=== PATIENT | male | born 1975 | race Caucasian/White ===

== ENCOUNTER 2018-12-26 19:07 | Emergency (ER) | payer MEDICAID ==
[~2018-12-26] VITALS: Ht 177.8 cm; Wt 79.3 kg
[~2018-12-26 19:07] MED LIST: GABA-532 PO; LAMO25TA62 PO; LURA80TA3 PO; NALT50TA10 PO; POTA99TA10 PO; PRAZ2CAP2 PO; QUET-1 PO
[2018-12-26 19:08] VITALS: BP 125/80
--- NOTE | 2018-12-26 19:56 | NUR ---
Pt reports recent change in psychotropic medictions with the adtion of seroquel and cynbalta. Pt already prescribed suboxone and gabapentin for chronic pain and titration down from opiates.
[2018-12-26] MEDS ORDERED: LORazepam 1 MG tablet PO ONE (21:00)
== END 2018-12-26 21:11 | disposition home or self-care (01) ==
LOC: ER 19:08
DX: F41.0 Panic disorder [episodic paroxysmal anxiety] (principal); G89.29 Other chronic pain; M54.6 Pain in thoracic spine; R19.7 Diarrhea, unspecified; R61 Generalized hyperhidrosis; J44.9 Chronic obstructive pulmonary disease, unspecified; F17.200 Nicotine dependence, unspecified, uncomplicated; Z88.8 Allergy status to other drugs, medicaments and biological substances; Z79.899 Other long term (current) drug therapy
CPT/HCPCS: 99284

== ENCOUNTER 2020-11-16 15:34 | Emergency (ER) | payer MEDICAID ==
[~2020-11-16] VITALS: Ht 177.8 cm; Wt 82.5 kg
[2020-11-16 15:57] VITALS: BP 169/91
[2020-11-16] MEDS ORDERED: HYDROcodone/acetaminophen 5mg/325mg tablet PO ONE (16:30)
== END 2020-11-16 16:49 | disposition home or self-care (01) ==
LOC: ER 15:35
DX: K08.89 Other specified disorders of teeth and supporting structures (principal); G89.29 Other chronic pain; F41.9 Anxiety disorder, unspecified; Z72.89 Other problems related to lifestyle; Z88.8 Allergy status to other drugs, medicaments and biological substances; Z79.899 Other long term (current) drug therapy
CPT/HCPCS: 99283

== ENCOUNTER 2022-07-19 19:44 | Emergency (ER) | payer MEDICAID ==
[~2022-07-19] VITALS: Ht 175.3 cm; Wt 88.5 kg
[~2022-07-19 19:44] MED LIST changes: +LURA80TA2 PO; -LURA80TA3 PO
[2022-07-19 19:51] VITALS: BP 131/93
== END 2022-07-20 00:19 | disposition home or self-care (01) ==
LOC: ER 19:45
DX: M62.830 Muscle spasm of back (principal); G89.29 Other chronic pain; M54.9 Dorsalgia, unspecified; F41.9 Anxiety disorder, unspecified; Z88.8 Allergy status to other drugs, medicaments and biological substances; Z79.899 Other long term (current) drug therapy
CPT/HCPCS: 99281

== ENCOUNTER 2023-11-11 15:29 | Outpatient (CLI) | payer MEDICAID ==
[2023-11-12] MEDS ORDERED: FAMO-129 PO (10:30)
== END 2023-11-11 23:59 | disposition home or self-care (01) ==
LOC: RAD 15:29
PROVIDERS: ATTEND Nurse Practitioner Family
DX: J44.9 Chronic obstructive pulmonary disease, unspecified (principal); J98.11 Atelectasis
CPT/HCPCS: 71046

== ENCOUNTER 2023-11-11 20:39 | Emergency (ER) | payer MEDICAID ==
[~2023-11-11] VITALS: Ht 175.3 cm; Wt 80.0 kg
[2023-11-11 21:11] LABS: BASOPHILS # (AUTO) 0.1 X10'3 (0-0.2); BASOPHILS % (AUTO) 0.5 % (0-1); EOSINOPHILS # (AUTO) 0.2 X10'3 (0-0.9); EOSINOPHILS % (AUTO) 1.8 % (0-6); HEMATOCRIT 47.8 % (42.0-52.0); HEMOGLOBIN 16.7 g/dl (14.0-17.9); LYMPHOCYTES # (AUTO) 2.1 X10'3 (1.1-4.8); LYMPHOCYTES % (AUTO) 20.2 % (21-51); MEAN CORPUSCULAR HEMOGLOBIN 31.4 PG (27.0-31.0); MEAN CORPUSCULAR HGB CONC 34.9 g/dL (33.0-36.5); MEAN CORPUSCULAR VOLUME 90.1 FL (78-98); MEAN PLATELET VOLUME 8.5 FL (7.4-10.4); MONOCYTES # (AUTO) 0.6 X10'3 (0-0.9); MONOCYTES % (AUTO) 6.3 % (2-12); NEUTROPHILS # (AUTO) 7.3 X10'3 (1.8-7.7); NEUTROPHILS % (AUTO) 71.2 % (42-75); PLATELET COUNT 248 X10'3 (140-440); RED CELL DISTRIBUTION WIDTH 13.4 % (11.5-14.5); WHITE BLOOD COUNT 10.2 X10'3 (4.5-11.0)
[2023-11-11 21:27] LABS: ALBUMIN 3.9 G/DL (3.4-5.0); ANION GAP 9 (8-16); BLOOD UREA NITROGEN 11 MG/DL (7-18); BUN/CREATININE RATIO 9.6 (10.0-20.0); CALCIUM 8.7 MG/DL (8.5-10.1); CHLORIDE 106 MMOL/L (99-107); CREATININE 1.14 MG/DL (0.60-1.10); GLUCOSE 110 MG/DL (70-104); POTASSIUM 3.7 MMOL/L (3.5-5.1); PRO BRAIN NATRIURETIC PEPTIDE < 30 PG/ML (0-125); SODIUM 141 MMOL/L (135-145); TOTAL CARBON DIOXIDE 26.5 MMOL/L (24-32); eCRCL 80 ML/MIN; eGFR 69 ML/MIN
[2023-11-11] MEDS: ondansetron/PF 4mg/2ml inj IV ONE (23:51)
[2023-11-11] MEDS: normal saline 1000ml 1,000 ML IV ONE (23:52)
[2023-11-11] MEDS: morphine 4 MG/ML inj SYRINge IV ONE (23:52)
[2023-11-12 00:03] LABS: ALANINE AMINOTRANSFERASE 33 U/L (12-78); ALBUMIN 3.8 G/DL (3.4-5.0); ALKALINE PHOSPHATASE 67 IU/L (46-116); ANION GAP 6 (8-16); ASPARTATE AMINO TRANSFERASE 15 U/L (10-37); BILIRUBIN,TOTAL 0.9 MG/DL (0.1-1.0); BLOOD UREA NITROGEN 12 MG/DL (7-18); CALCIUM 8.8 MG/DL (8.5-10.1); CHLORIDE 106 MMOL/L (99-107); GLUCOSE 93 MG/DL (70-104); POTASSIUM 3.9 MMOL/L (3.5-5.1); SODIUM 142 MMOL/L (135-145); TOTAL CARBON DIOXIDE 29.8 MMOL/L (24-32); TOTAL PROTEIN 7.5 G/DL (6.4-8.2); eCRCL 76 ML/MIN; eGFR 65 ML/MIN
[2023-11-12 00:06] LABS: LIPASE 82 U/L (16-77)
[2023-11-12] MEDS: ondansetron/PF 4mg/2ml inj IV ONE (00:15)
[2023-11-12] MEDS: morphine 4 MG/ML inj SYRINge IV ONE ×2 (01:01→05:10)
[2023-11-12 09:54] VITALS: RESP 16; TEMP 98.8
[2023-11-12] MEDS ORDERED: FAMO-129 PO (10:30)
[2023-11-12 10:38] VITALS: BP 104/74; PULSE 58; O2SAT 95
== END 2023-11-12 10:38 | disposition home or self-care (01) ==
LOC: ER 20:40
DX: R10.11 Right upper quadrant pain (principal); Z88.8 Allergy status to other drugs, medicaments and biological substances; Z79.899 Other long term (current) drug therapy
CPT/HCPCS: 36415; 71045; 74176; 74181; 76700; 80048; 80053; 83690; 83880; 84484; 85025; 93005; 96361; 96374; 96375; 96376; 99285; J2270; J2405; J7030

== ENCOUNTER 2023-12-05 15:36 | Outpatient (CLI) | payer MEDICAID ==
[~2023-12-05] VITALS: Ht 175.3 cm; Wt 80.7 kg
[~2023-12-05 15:36] MED LIST changes: +FAMO-129 PO
[2023-12-05] MEDS: albuterol 2.5 MG/3 ML nebule NEB ONE (16:29)
[2023-12-05 16:30] VITALS: PULSE 104; RESP 16; O2SAT 96
== END 2023-12-05 23:59 | disposition home or self-care (01) ==
LOC: RT 15:36
PROVIDERS: ATTEND Nurse Practitioner Family
DX: J44.9 Chronic obstructive pulmonary disease, unspecified (principal)
CPT/HCPCS: 94060; 94760; L4360

== ENCOUNTER → 2024-01-13 | Outpatient (CLI) | payer MEDICAID ==
[~2024-01-13] MED LIST changes: +ASEN10TA9 SL; +BECL10.6 PO; -FAMO-129 PO; -GABA-532 PO; -LAMO25TA62 PO; +LUMA21CA PO; -LURA80TA2 PO; -NALT50TA10 PO; +PANT40TA54 PO; -POTA99TA10 PO; +PRAZ1CAP5 PO; -PRAZ2CAP2 PO; -QUET-1 PO; +TIOT4MIS3 INH
== END | disposition home or self-care (01) ==
LOC: CARD DIAG 12:52
PROVIDERS: ATTEND Nurse Practitioner Family
DX: I08.8 Other rheumatic multiple valve diseases (principal); R06.02 Shortness of breath
CPT/HCPCS: 93306

== ENCOUNTER 2024-08-15 05:37 | Emergency (ER) | payer MEDICAID ==
[~2024-08-15] VITALS: Ht 175.3 cm; Wt 89.1 kg
[2024-08-15 05:39] VITALS: TEMP 97.9
[2024-08-15 06:10] LABS: BASOPHILS % (AUTO) 0.5 % (0-1); EOSINOPHILS # (AUTO) 0.2 X10'3 (0-0.9); EOSINOPHILS % (AUTO) 3.2 % (0-6); HEMATOCRIT 47.6 % (42.0-52.0); HEMOGLOBIN 16.6 g/dl (14.0-17.9); LYMPHOCYTES # (AUTO) 1.6 X10'3 (1.1-4.8); LYMPHOCYTES % (AUTO) 22.2 % (21-51); MEAN CORPUSCULAR HGB CONC 34.9 g/dL (33.0-36.5); MEAN CORPUSCULAR VOLUME 88.8 FL (78-98); MEAN PLATELET VOLUME 8.9 FL (7.4-10.4); MONOCYTES # (AUTO) 0.5 X10'3 (0-0.9); MONOCYTES % (AUTO) 7.1 % (2-12); PLATELET COUNT 185 X10'3 (140-440); RED BLOOD COUNT 5.36 X10'6 (4.70-6.10); RED CELL DISTRIBUTION WIDTH 13.1 % (11.5-14.5); WHITE BLOOD COUNT 7.4 X10'3 (4.5-11.0)
[2024-08-15] MEDS: LORazepam 1 MG tablet PO ONE (06:12)
[2024-08-15 06:21] LABS: URINE AMPHETAMINE SCREEN NEGATIVE (Neg); URINE BARBITUATE SCREEN NEGATIVE (Neg); URINE BENZODIAZEPINES SCREEN NEGATIVE (Neg); URINE CANNABINOID SCREEN NEGATIVE (Neg); URINE COCAINE SCREEN NEGATIVE (Neg); URINE METHADONE SCREEN NEGATIVE (Neg); URINE OPIATE SCREEN NEGATIVE (Neg); URINE PHENCYCLIDINE SCREEN NEGATIVE (Neg)
[2024-08-15 06:23] LABS: ALANINE AMINOTRANSFERASE 54 U/L (12-78); ALBUMIN 3.9 G/DL (3.4-5.0); ALBUMIN/GLOBULIN RATIO 1.1 (1.1-1.5); ALKALINE PHOSPHATASE 74 IU/L (46-116); ANION GAP 11 (8-16); ASPARTATE AMINO TRANSFERASE 29 U/L (10-37); BILIRUBIN,TOTAL 1.3 MG/DL (0.1-1.0); BLOOD UREA NITROGEN 9 MG/DL (7-18); BUN/CREATININE RATIO 7.7 (10.0-20.0); CALCIUM 8.1 MG/DL (8.5-10.1); CHLORIDE 103 MMOL/L (99-107); CREATININE 1.17 MG/DL (0.60-1.10); GLUCOSE 119 MG/DL (70-104); POTASSIUM 3.1 MMOL/L (3.5-5.1); SODIUM 139 MMOL/L (135-145); TOTAL CARBON DIOXIDE 25.3 MMOL/L (24-32); TOTAL PROTEIN 7.6 G/DL (6.4-8.2); eCRCL 78 ML/MIN; eGFR 67 ML/MIN
[2024-08-15 06:32] LABS: ETHANOL < 10 MG/DL (<10); MAGNESIUM 2.6 MG/DL (1.5-2.4); THYROID STIMULATING HORMONE 1.39 ulU/ml (0.34-4.50)
[2024-08-15] MEDS: albuterol 2.5 MG/3 ML nebule NEB ONE (06:55)
[2024-08-15] MEDS: ipratropium 0.5 MG/2.5ML nebule IH ONE (06:55)
[2024-08-15 06:57] VITALS: PULSE 89; RESP 16; O2SAT 97
[2024-08-15 07:13] VITALS: PULSE 94; RESP 16; O2SAT 100
[2024-08-15] MEDS ORDERED: POTA10CA95 PO (07:37)
[2024-08-15] MEDS: POTASSIUM CHLORIDE 20 MEQ/15 ML oral solution PO ONE (07:52)
[2024-08-15 08:29] VITALS: BP 113/75; RESP 15; O2SAT 96
== END 2024-08-15 08:40 | disposition home or self-care (01) ==
LOC: ER 05:37
DX: R00.2 Palpitations (principal); R00.0 Tachycardia, unspecified; E87.6 Hypokalemia; F41.9 Anxiety disorder, unspecified; G89.29 Other chronic pain; M54.9 Dorsalgia, unspecified; Z88.8 Allergy status to other drugs, medicaments and biological substances; Z79.899 Other long term (current) drug therapy
CPT/HCPCS: 36415; 71045; 80053; 80305; 80320; 83605; 83735; 84443; 84484; 85025; 93005; 94640; 94760; 99285